=== PATIENT | female | born 1940 | race Caucasian/White ===

== ENCOUNTER 2017-04-26 12:07 | Emergency (ER) | payer MEDICARE, BC ==
[~2017-04-26] VITALS: Ht 167.6 cm; Wt 59.0 kg
[2017-04-26 12:30] VITALS: BP 141/80
[2017-04-26] MEDS ORDERED: HYDROcodone/APAP 7.5/325MG 1 TAB TABLET PO ONE (13:45)
--- NOTE | 2017-04-26 13:48 | PHYS DOC ---
Past Medical History Past Medical History: Other Additional Past Medical Histor: SPINAL STENOSIS, SCIATICA, CELIAC DS Past Surgical History: No Surgical History Alcohol Use: Occasionally Drug Use: None Adult General Chief Complaint Chief Complaint: OTHER COMPLAINTS [facility] HPI Patient is a 76 year old female presents to the emergency department stating that she has chronic back pain in which started in December. MRI done in December which showed some stenosis in the central spinal area. Patient states that she had called her pain management physician today and read the report to him and he told her to come to emergency department immediately. Patient states that she has had no change in the numbness or tingling that goes into the legs. Patient denies any loss of bowel or bladder. Patient states that she has appointment with Dr. chavez on May 10 however she was told to come to the emergency department immediately. Patient states that she is having extreme patient discomfort. She states she is almost out of her hydrocodone 7.5 in which she's only taken them at night to help with the pain and discomfort and she also has restless leg syndrome. Patient denies any new injury or trauma since January. Her MRI however was completed in December. She is not able to identify the injury that she had in January. Review of Systems Review of Systems Constitutional: Denies fever or chills [] Eyes: Denies change in visual acuity, redness, or eye pain [] HENT: Denies nasal congestion or sore throat [] Respiratory: Denies cough or shortness of breath [] Cardiovascular: No additional information not addressed in HPI [] GI: Denies abdominal pain, nausea, vomiting, bloody stools or diarrhea [] : Denies dysuria or hematuria [] Musculoskeletal: back pain denies joint pain [] Integument: Denies rash or skin lesions [] Neurologic: Denies headache, focal weakness or sensory changes [] Endocrine: Denies polyuria or polydipsia [] Current Medications Current Medications Current Medications Medications (Trade) Dose Ordered Sig/Nikita Start Time Stop Time Status Last Admin Dose Admin Acetaminophen/ Hydrocodone Bitart (Lortab 7.5/325) 1 tab 1X ONCE 04/26/17 13:45 04/26/17 13:46 Allergies Allergies Allergies Coded Allergies Type Severity Reaction Last Updated Verified Penicillins Allergy Unknown 04/26/17 No streptomycin Allergy Unknown 04/26/17 No Physical Exam Physical Exam Constitutional: Well developed, well nourished, no acute distress, non-toxic appearance. [] HENT: Normocephalic, atraumatic, bilateral external ears normal, oropharynx moist, no oral exudates, nose normal. [] Eyes: PERRLA, EOMI, conjunctiva normal, no discharge. [] Neck: Normal range of motion, no tenderness, supple, no stridor. [] Cardiovascular:Heart rate regular rhythm, no murmur [] Lungs & Thorax: Bilateral breath sounds clear to auscultation [] Skin: Warm, dry, no erythema, no rash. [] Back: No tenderness Extremities: No tenderness, no cyanosis, no clubbing, ROM intact, no edema. Patient with equal strength noted to bilateral lower legs. Patient is able to ambulate with a cane with a good steady gait. Peripheral pulses 2+ cap refill brisk less than 2 seconds. Neurologic: Alert and oriented X 3, normal motor function, normal sensory function, no focal deficits noted. [] Psychologic: Affect normal, judgement normal, mood normal. [] Current Patient Data Vital Signs Vital Signs Date Time Temp Pulse Resp B/P (MAP) Pulse Ox O2 Delivery O2 Flow Rate FiO2 04/26/17 12:30 98.3 62 18 100 Room Air 98.3 EKG EKG [] Radiology/Procedures Radiology/Procedures [] Course & Med Decision Making Course & Med Decision Making Pertinent Labs and Imaging studies reviewed. (See chart for details) After talking with patient or a moment we were able to obtain a appointment for her for tomorrow morning at 9:[address] chavez. Patient became tearful stating that she is almost out of her hydrocodone. She also states that she has multiple guest her house in which is causing some increased stress. Patient will be discharged home in stable condition signs and symptoms to return back to emergency department as been provided. Patient agrees with discharge instructions treatment regimens and follow-up recommendations. She'll be discharged home in stable condition. All questions and concerns have been answered for the patient. [] Dragon Disclaimer Dragon Disclaimer This electronic medical record was generated, in whole or in part, using a voice recognition dictation system. Departure Departure Impression: Primary Impression: Back pain Disposition: HOME, SELF-CARE Condition: STABLE Referrals: UNKNOWN PCP NAME (PCP) Patient Instructions: Back Pain, Adult Additional Instructions: Activity as tolerated. Continue with medications you have at home for your pain and discomfort. You have an appointment set up at 9:[address] Chavez. Return to the emergency department as needed for signs and symptoms of become worse. ROE ELLINGTON APRN Apr 26, 2017 13:48
== END 2017-04-26 14:08 | disposition home or self-care (01) ==
LOC: ER 12:07
DX: G89.29 Other chronic pain (principal); M54.89 Other dorsalgia; Z88.0 Allergy status to penicillin; Z88.1 Allergy status to other antibiotic agents
CPT/HCPCS: 99282

== ENCOUNTER → 2017-05-05 | Outpatient (CLI) | payer MEDICARE, BC ==
[2017-04-26 12:30] VITALS: BP 141/80
[~2017-05-05] MED LIST: AMLO5TAB2 PO; ASPI-482 PO; B12/1TAB3 PO; CHOL10003 PO; DOCU-109 PO; FENO134C PO; FERR159T3 PO; FLEC100T PO; HYDR12.58 PO; LEVO100T5 PO; LOSA100T6 PO; MELO15TA23 PO; METH750T2 PO; OMEG1CAP6 PO; OXYC1TAB9 PO; PHYTOCERAMIDES; PRAV80TA2 PO; UBID30CA9 PO; VENIAFAXINE
[2017-05-05 13:35] LABS: BASO # 0.1 x10^3/uL (0.0-0.2); BASO % 1 % (0-3); EOS % 6 % (0-3); HEMATOCRIT 38.5 % (36.0-47.0); HEMOGLOBIN 12.8 g/dL (12.0-15.5); LYMPH # 2.1 x10^3/uL (1.0-4.8); LYMPH % 21 % (24-48); MEAN CORPUSCULAR HEMOGLOBIN 29 pg (25-35); MEAN CORPUSCULAR HGB CONC 33 g/dL (31-37); MEAN CORPUSCULAR VOLUME 88 fL (79-100); MONO % 7 % (0-9); NEUT % 66 % (31-73); PLATELET COUNT 385 x10^3/uL (140-400); RED BLOOD COUNT 4.36 x10^6/uL (3.50-5.40); RED CELL DISTRIBUTION WIDTH 14.5 % (11.5-14.5); WHITE BLOOD COUNT 10.2 x10^3/uL (4.0-11.0)
[2017-05-05 13:45] LABS: ALBUMIN 3.8 g/dL (3.4-5.0); CALCIUM 9.9 mg/dL (8.5-10.1); CREATININE 1.3 mg/dL (0.6-1.0); GFR 39.9; TOTAL BILIRUBIN 0.2 mg/dL (0.2-1.0); TOTAL PROTEIN 7.6 g/dL (6.4-8.2)
[2017-05-05 13:47] LABS: INR 0.9 (0.8-1.1)
== END | disposition home or self-care (01) ==
LOC: SURGPAT 12:53
PROVIDERS: ATTEND Neurological Surgery
DX: M48.06 Spinal stenosis, lumbar region (principal); M43.16 Spondylolisthesis, lumbar region
CPT/HCPCS: 36415; 80053; 85025; 85610; 85730; 87641